=== PATIENT | female | born 1960 | race Two or more races ===

== ENCOUNTER 2017-09-11 15:31 | Outpatient (CLI) | payer OTHER | END 2017-09-11 15:46 | disposition home or self-care (01) | LOC: RAD 501 15:31 | DX: M47.817 Spondylosis without myelopathy or radiculopathy, lumbosacral region (principal); M16.11 Unilateral primary osteoarthritis, right hip; M16.12 Unilateral primary osteoarthritis, left hip; M25.511 Pain in right shoulder ==

== ENCOUNTER 2020-11-20 15:17 | Outpatient (CLI) | payer OTHER | END 2020-11-20 15:31 | disposition home or self-care (01) | LOC: RAD 15:17 | PROVIDERS: ATTEND Internal Medicine Rheumatology | DX: M17.11 Unilateral primary osteoarthritis, right knee (principal); M17.12 Unilateral primary osteoarthritis, left knee ==

== ENCOUNTER 2021-04-10 14:00 | Emergency (ER) | payer OTHER ==
[~2021-04-10] VITALS: Ht 157.5 cm; Wt 88.5 kg
[2021-04-10] MEDS ORDERED: LEVOTHYROXINE25 MCG (14:30)
[2021-04-10] MEDS ORDERED: AVAPRO150 MG PO (17:35)
== END 2021-04-10 17:50 | disposition home or self-care (01) ==
LOC: ER 14:00
DX: I10 Essential (primary) hypertension (principal)

== ENCOUNTER 2025-03-03 13:59 | Outpatient (CLI) | payer OTHER ==
[~2025-03-03 13:59] MED LIST: AVAPRO150 MG PO; LEVOTHYROXINE25 MCG
== END 2025-03-03 14:12 | disposition home or self-care (01) ==
LOC: RAD 13:59
PROVIDERS: ATTEND Internal Medicine Rheumatology
DX: M47.817 Spondylosis without myelopathy or radiculopathy, lumbosacral region (principal); M16.11 Unilateral primary osteoarthritis, right hip; M16.12 Unilateral primary osteoarthritis, left hip